=== PATIENT | female | born 1950 | race Two or more races ===

== ENCOUNTER 2021-09-24 03:30 | Emergency (ER) | payer OTHER ==
[2021-09-24 03:53] VITALS: BMI 27.8
[2021-09-24 04:38] LABS: BASO % 0.1 % (0-2.0); EOS % 0.7 % (0-4.5); HEMATOCRIT 36.6 % (32.4-45.2); HEMOGLOBIN 12.5 GM/dL (10.7-15.3); LYMPH % 19.2 % (8-40); MCH 30.5 pg (25.7-33.7); MCHC 34.3 g/dl (32.0-36.0); MEAN CELL VOLUME 88.9 fl (80-96); MEAN PLT VOLUME 8.4 fl (7.5-11.1); MONO % 4.2 % (3.8-10.2); NEUT % 75.8 % (42.8-82.8); PLATELET COUNT 174 10^3/uL (134-434); RBC 4.11 M/mm3 (3.60-5.2); WHITE BLOOD COUNT 6.1 K/mm3 (4.0-10.0)
[2021-09-24 04:47] LABS: EPI CELLS 9 /uL (0-25.1); HYALINE CASTS 0 /uL (0-3.1); URINE APPEARANCE CLEAR; URINE BACTERIA 46 /uL (0-1359); URINE BILIRUBIN NEGATIVE (NEGATIVE); URINE COLOR YELLOW; URINE GLUCOSE (UA) 3+ (NEGATIVE); URINE KETONE NEGATIVE (NEGATIVE); URINE LEUK ESTERASE 2+ (NEGATIVE); URINE NITRITE NEGATIVE (NEGATIVE); URINE PROTEIN NEGATIVE (NEGATIVE); URINE RBC 15 /uL (0-23.9); URINE UROBILINOGEN 0.2 mg/dL (0.2-1.0); URINE WBC 66 /uL (0-25.8)
[2021-09-24 04:56] LABS: CALCIUM 9.1 mg/dL (8.5-10.1)
[2021-09-24 04:57] LABS: ALBUMIN 4.1 g/dl (3.4-5.0); BLOOD UREA NITROGEN 20.4 mg/dL (7-18)
[2021-09-24 05:00] LABS: CREATININE 1.3 mg/dL (0.55-1.3)
[2021-09-24 05:01] LABS: BILIRUBIN,TOTAL 0.3 mg/dL (0.2-1); TOT PROT 7.7 g/dl (6.4-8.2)
[2021-09-24 05:38] VITALS: BP 148/83; PULSE 88; TEMP 98.3
== END 2021-09-24 05:49 | disposition home or self-care (01) ==
LOC: FER 03:30
DX: N30.00 Acute cystitis without hematuria (principal); R73.9 Hyperglycemia, unspecified; R11.0 Nausea
CPT/HCPCS: 0241U-QW; 36415; 80053; 81003; 84484; 85025; 87086; 87186; 93005; 99284-25

== ENCOUNTER 2021-11-10 13:12 | Emergency (ER) | payer OTHER ==
[2021-11-10 13:29] VITALS: BP 176/113; PULSE 84; RESP 20; TEMP 98.4; BMI 27.8
[2021-11-10 13:54] LABS: HEMATOCRIT 34.9 % (32.4-45.2); HEMOGLOBIN 11.8 G/dL (10.7-15.3); MCH 31.4 pg (25.7-33.7); MCHC 33.8 g/dl (32.0-36.0); MEAN PLT VOLUME 9.1 fl (7.5-11.1); PLATELET COUNT 206.7 10^3/uL (134-434); RBC 3.75 10^6/uL (3.60-5.2); RDW 14.9 % (11.6-15.6); WHITE BLOOD COUNT 4.5 10^3/uL (4.0-10.8)
[2021-11-10 14:22] LABS: ALBUMIN 4.6 g/dl (3.4-5.0); CALCIUM 9.4 mg/dl (8.5-10); CREATININE 1.3 mg/dl (0.55-1.3); TOT PROT 7.9 g/dl (6.4-8.2)
[2021-11-10] MEDS ORDERED: METOCLOPRAMIDE HCL INJECTION 10 MG/2 ML VIAL IVPB ONE (14:23)
[2021-11-10] MEDS ORDERED: ACETAMINOPHEN 1000 MG/100 ML BAG IVPB ONE (14:23)
[2021-11-10] MEDS ORDERED: SODIUM CHLORIDE 0.9% 500 ML INFUS.BAG IV ONE (14:24)
[2021-11-10 14:28] LABS: PLATELET ESTIMATE ADEQUATE
[2021-11-10] MEDS ORDERED: ACETAMINOPHEN INJECTION 100 ML IVPB ONE (14:29)
[2021-11-10] MEDS ORDERED: METOCLOPRAMIDE HCL INJECTION 10 MG/2 ML VIAL ONE (14:29)
== END 2021-11-10 15:56 | disposition home or self-care (01) ==
LOC: FER 13:12
PROC: 3E0333Z Introduction of Anti-inflammatory into Peripheral Vein, Percutaneous Approach (ICD-10-PCS; principal; 2021-11-10)
PROC: 3E033GC Introduction of Other Therapeutic Substance into Peripheral Vein, Percutaneous Approach (ICD-10-PCS; 2021-11-10)
DX: R51.9 Headache, unspecified (principal); K59.00 Constipation, unspecified; R19.7 Diarrhea, unspecified
CPT/HCPCS: 0241U-QW; 36415; 80053; 81003; 81015; 84484; 85027; 87086; 93005; 99284-25